=== PATIENT | male | born 1945 | race Hispanic/Latino ===

== ENCOUNTER 2018-04-04 22:47 | Inpatient (IN) | payer MEDICARE, OTHER ==
[2018-04-04] MEDS ORDERED: Fentanyl 100 MCG/2 ML VIAL ONE (23:02)
[2018-04-04] MEDS ORDERED: fentaNYL Citrate/PF 2,000 MCG in Sodium Chloride 0.9% 60 ML IV SCH (23:07)
[2018-04-04 23:16] LABS: Actual Bicarbonate (HCO3a) 20.6 mEq/L (22-28); Analyzer IN Cardio ER; Base Excess (BEa) -8.1 mEq/L (-2.0 to +3.0); Calcium, Ionized 1.13 mmol/L (1.12-1.30); Carboxyhemoglobin (COHb) 0.1 gm% (0.0-3.0); Hemoglobin (Hb) 12.5 g/dL (14.0-18.0); O2 Tension (PaO2) 170.3 mmHg (> 70.0); Potassium - ABG Lab 3.51 mmol/L (3.70-5.30)
[2018-04-04 23:17] LABS: #Eosinphils 0.7 thou/uL (0.0-0.7); #Lymphocytes 2.3 thou/uL (1.20-3.40); #Monocytes 0.5 thou/uL (0.11-0.59); #Neutrophils 4.3 thou/uL (1.40-6.50); %Basophils 0.5 % (0.0-1.0); %Eosinophils 9.3 % (0.0-10.0); %Lymphocytes 29.5 % (21.0-51.0); %Monocytes 6.1 % (0.0-10.0); %Neutrophils 54.6 % (42.0-75.0); Hemoglobin 12.2 g/dL (14.0-18.0); Mean Corpuscular HGB CONC 33.2 g/dL (32.0-36.0); Mean Corpuscular Volume 99.5 fL (78.0-98.0); Mean Platelet Volume 7.4 fL (7.4-10.4); Platelet Count 261 thou/uL (130-400); Red Blood Cell (RBC) Count 3.71 mill/uL (4.70-6.10); White Blood Cell (WBC) Count 7.9 thou/uL (4.8-10.8)
[2018-04-04 23:22] LABS: INR-International Normal Ratio 1.1; PTT 29.2 SEC (22.9-36.1); Prothrombin Time 14.1 SEC (12.0-14.7)
[2018-04-04 23:22] LABS: Puncture Site LRA; pH, Arterial 7.18 (7.35-7.45)
[2018-04-04 23:23] LABS: D-Dimer Test 2.4 *mcg/mL (0.27-0.43)
--- NOTE | 2018-04-04 23:37 | RAD ---
CHEST ONE VIEW: History: Shortness of breath. Pain. Comparison: None. FINDINGS: Limited evaluation due to overlying monitors and leads. Heart is enlarged. Pulmonary vessels appear t o be prominent. There are bilateral interstitial and alveolar infiltrates. Small left sided pleural e ffusion is suspected. No pneumothorax on this semi upright projection. Endotracheal tube appears to t erminate just beyond the level of the clavicles. IMPRESSION: Bilateral interstitial nodular infiltrates. POS: [facility]
[2018-04-04 23:41] LABS: ALT (SGPT) 28 U/L (8-55); AST (SGOT) 47 U/L (5-34); Albumin 3.4 g/dL (3.4-4.8); Alkaline Phosphatase 129 U/L (40-150); Anion Gap 17 mmol/L (10-20); BUN (Urea Nitrogen) 13 mg/dL (8.4-25.7); Bilirubin, Total 0.6 mg/dL (0.2-1.2); CK (CPK) 42 U/L (30-200); Calc. Creatinine Clearance 0 mL/min (70-130); Calcium 8.2 mg/dL (7.8-10.44); Carbon Dioxide 18 mmol/L (23-31); Chloride 100 mmol/L (98-107); Estimated GFR-MDRD 56; Globulin 2.9 g/dL (2.4-3.5); Glucose 221 mg/dL (83-110); Lipase 14 U/L (8-78); Magnesium 1.7 mg/dL (1.6-2.6); Potassium 4.2 mmol/L (3.5-5.1); Protein, Total 6.3 g/dL (5.8-8.1); Sodium 131 mmol/L (136-145)
[2018-04-04 23:43] LABS: CKMB 1.2 ng/mL (0-6.6); Troponin I 0.027 ng/mL (< 0.028)
[2018-04-05] MEDS ORDERED: Cefepime 2 GM VIAL ONE
[2018-04-05] MEDS ORDERED: Furosemide 40 MG/4 ML VIAL ONE (00:28)
[2018-04-05] MEDS ORDERED: Furosemide 20 MG/2 ML VIAL ONE (00:28)
[2018-04-05] MEDS ORDERED: Lorazepam 2 MG/ML VIAL SLOW IVP PRN (01:50)
[2018-04-05] MEDS ORDERED: Propofol BOLUS 1,000 MG/100 ML VIAL IV PRN (01:50)
[2018-04-05] MEDS ORDERED: Propofol 1,000 MG/100 ML VIAL IV PRN (01:50)
[2018-04-05] MEDS ORDERED: Fentanyl BOLUS 250 ML IVPB PRN (01:50)
[2018-04-05] MEDS ORDERED: Morphine 2 MG/ML SYRINGE SLOW IVP PRN (01:50)
[2018-04-05] MEDS ORDERED: Acetaminophen 325 MG TAB PO PRN (02:15)
[2018-04-05] MEDS ORDERED: Ondansetron PF 4 MG/2 ML Vial IVP PRN (02:15)
[2018-04-05] MEDS ORDERED: Ventilator Sedation Protocol 1 EACH FS ONE (02:18)
[2018-04-05 02:56] LABS: Actual Bicarbonate (HCO3a) 24.1 mEq/L (22-28); Base Excess (BEa) 0.4 mEq/L (-2.0 to +3.0); CO2 Tension 36.1 mmHg (35.0-45.0); Calcium, Ionized 1.09 mmol/L (1.12-1.30); Carboxyhemoglobin (COHb) 0.7 gm% (0.0-3.0); Hemoglobin (Hb) 12.9 g/dL (14.0-18.0); O2 Tension (PaO2) 345.1 mmHg (> 70.0); pH, Arterial 7.44 (7.35-7.45)
[2018-04-05 02:59] LABS: ALV-art Gradient 215.825 (0-20); Puncture Site RBRACH
[2018-04-05 03:19] LABS: #Eosinphils 0.3 thou/uL (0.0-0.7); #Lymphocytes 0.6 thou/uL (1.20-3.40); #Monocytes 0.4 thou/uL (0.11-0.59); #Neutrophils 8.5 thou/uL (1.40-6.50); %Basophils 0.4 % (0.0-1.0); %Eosinophils 3.6 % (0.0-10.0); %Lymphocytes 5.8 % (21.0-51.0); %Monocytes 3.7 % (0.0-10.0); %Neutrophils 86.6 % (42.0-75.0); Hemoglobin 12.1 g/dL (14.0-18.0); Mean Corpuscular HGB CONC 34.4 g/dL (32.0-36.0); Mean Corpuscular Hemoglobin 33.4 pg (27.0-31.0); Mean Platelet Volume 7.2 fL (7.4-10.4); Platelet Count 232 thou/uL (130-400); RBC Distribution Width 11.8 % (11.5-14.5); Red Blood Cell (RBC) Count 3.62 mill/uL (4.70-6.10); White Blood Cell (WBC) Count 9.8 thou/uL (4.8-10.8)
[2018-04-05 03:55] LABS: Anion Gap 13 mmol/L (10-20); BUN (Urea Nitrogen) 13 mg/dL (8.4-25.7); Calc. Creatinine Clearance 73 mL/min (70-130); Calcium 8.3 mg/dL (7.8-10.44); Carbon Dioxide 23 mmol/L (23-31); Chloride 100 mmol/L (98-107); Estimated GFR-MDRD 70; Glucose 167 mg/dL (83-110); Potassium 3.3 mmol/L (3.5-5.1); Sodium 133 mmol/L (136-145)
[2018-04-05 03:59] LABS: Troponin I 0.056 ng/mL (< 0.028)
[2018-04-05 04:39] LABS: Lactic Acid 1.4 mmol/L (0.5-2.2)
[2018-04-05 04:57] LABS: Troponin I 0.075 ng/mL (< 0.028)
[2018-04-05] MEDS ORDERED: Potassium Chloride 40 MEQ in Premix Bag 1 BAG IVPB SCH (05:45)
[2018-04-05 06:17] LABS: Bilirubin Negative (Negative); Blood, Urine Negative (Negative); Clarity CLEAR (Clear); Glucose, Urine (Dipstick) Negative (Negative); Leukocyte Negative (Negative); Nitrite Negative (Negative); Protein, Urine (Dipstick) Negative (Neg-Trace); Specific Gravity, Urine 1.009 (1.002-1.036)
--- NOTE | 2018-04-05 07:33 | RAD ---
CHEST 1 VIEW: Date: 04/04/18 HISTORY: Chest pain. COMPARISON: Radiograph prior day. FINDINGS: Patient is intubated with endotracheal tube tip poorly visualized due to overlying cardiac device. Th e central venous catheter tip sits at the inferior SVC. No pneumothorax. Layering effusions. Moderate edema. Cardiomegaly. IMPRESSION: 1. Endotracheal tube tip not well seen. 2. Enteric tube tip also not well seen. 3. Cardiomegaly with effusions and moderate edema. POS: [facility]
[2018-04-05] MEDS ORDERED: DC Sedation Protocol FS ONE (08:07)
--- NOTE | 2018-04-05 08:59 | CON ---
DATE OF CONSULTATION: 04/05/2018 CONSULTING PHYSICIAN: Joseist . Thirty-five minutes of critical care time. HISTORY OF PRESENT ILLNESS: This is a 72-year-old male who came in yesterday with increasing shortne ss of breath. He was intubated in the emergency room with presumptive diagnosis of pulmonary edema d ue to congestive heart failure. He was also started on antibiotics for assumed concurrent pneumonia. This morning, he was awake and alert. He was extubated without any difficulty. He tells me his sh ortness of breath started suddenly yesterday, although he had an episode before that. He had coronar y bypass grafting surgery a little over a month ago at [facility]. We do not have any records f rom that hospitalization. PAST MEDICAL HISTORY: 1. Coronary artery disease. 2. Hyperlipidemia. 3. Hypertension. 4. Chronic obstructive pulmonary disease. PAST SURGICAL HISTORY: 1. Coronary artery bypass grafting surgery. 2. Hernia repair. SOCIAL HISTORY: He stopped drinking in mid February after a history of drinking heavily in the past, quit smoking in February formally 1-1/2 packs per day. ALLERGIES: None. MEDICATIONS PRIOR TO ADMISSION: Aspirin 325 mg daily, lisinopril 2.5 mg daily, carvedilol 6.25 mg tw ice daily, atorvastatin 20 mg daily. PHYSICAL EXAMINATION: VITAL SIGNS: Temperature 97.7, pulse 65, blood pressure 123/66, O2 saturation 100%, intake since adm ission none, output 2760. HEENT: Pupils react. Sclerae icteric. Oropharynx clear. NECK: No adenopathy or JVD. LUNGS: Clear without wheezing or rhonchi. CARDIOVASCULAR: S1, S2 regular. ABDOMEN: Soft, nontender. EXTREMITIES: No edema. LABORATORY DATA: Sodium 133, potassium 3.3, chloride 100, CO2 23, BUN 13, creatinine 1.0, glucose 16 7. Troponin 0.07. Procalcitonin 0.06. White blood cell count 9.8, hematocrit 35.2, platelet count 232. INR 1.1. A CT pulmonary angiogram did not show any pulmonary emboli. A few scattered changes and some small p leural effusions bilaterally. ASSESSMENT: 1. Acute respiratory failure requiring mechanical ventilation - probably secondary to fluid overload . 2. Doubt concurrent pneumonia. RECOMMENDATIONS: 1. Extubation. 2. Continue diuresis. 3. Cardiology consultation. My assumption is EF is probably low given the fact that he is having to wear a LifeVest.
[2018-04-05] MEDS: Famotidine/PF 20 mg/2ml Vial SLOW IVP SCH ×3 (09:00→20:33)
[2018-04-05] MEDS: Enoxaparin Sodium 40 MG/0.4 ML SYRINGE SC SCH ×2 (09:00→11:43)
[2018-04-05] MEDS: Carvedilol 6.25 MG TAB PO SCH ×2 (09:00→20:33)
[2018-04-05] MEDS: Lisinopril 2.5 MG TAB PO SCH (09:00)
[2018-04-05] MEDS: Atorvastatin Calcium 20 MG TAB PO SCH (09:00)
[2018-04-05] MEDS: Aspirin 325 mg Enteric Coated Tablet PO SCH (09:00)
[2018-04-05] MEDS ORDERED: Prevnar 13-Val Conj/PF 0.5 ML SYRINGE IM ONE (09:00)
[2018-04-05] MEDS: Furosemide 40 MG/4 ML VIAL SLOW IVP SCH ×2 (09:00→11:44)
--- NOTE | 2018-04-05 09:08 | HP ---
PRIMARY CARE PHYSICIAN: Dr. Sharpe. FERMENTING CELLARS RECEIVER: Dr. Montemayor. VASCULAR SURGEON: Dr. Buck Leos. CODE STATUS: FULL CODE. TIME OF EVALUATION: 1:15 CHIEF COMPLAINT: Severe shortness of breath. HISTORY OF PRESENT ILLNESS: This is a 72-year-old male patient with past medical history of coronary artery disease, status post CABG 5 weeks ago, the patient had some improvement since surgery, was doing better at home; however, yesterday patient started having some weakness, not tolerating walking and went to bed and after being in bed around 10:00 p.m., the patient developed sudden severe shortness of breath, told his to call 911 due to the severity of the symptoms. No clear triggers, no alleviating factors. The patient was seen in the ER, the patient was on CPAP with some improvement; however, symptoms continued to get worse. The patient went into respiratory failure, was intubated. By the time of my examination, the patient is more stable on sedation protocol. The symptoms . REVIEW OF SYSTEMS: Unable to obtain due to patient is sedated and intubated. Family reported patient having severe shortness of breath. PAST MEDICAL HISTORY: Positive for coronary artery disease, status post CABG; acute DC in 02/2018; hyperlipidemia; hypertension; emphysema. PAST SURGICAL HISTORY: CABG x4, hernia repair. PSYCHIATRIC HISTORY: No previous psychiatric history. FAMILY HISTORY: Reviewed and non contributory to current presentation. SOCIAL HISTORY: The patient was a heavy drinker until DC in February. Former tobacco smoker until he got the DC in February. KNOWN ALLERGIES: No known drug allergies. REPORTED MEDICATIONS: Aspirin, lisinopril, carvedilol, atorvastatin. PHYSICAL EXAMINATION: VITAL SIGNS: On presentation, blood pressure 179/119, pulse 136, respiratory rate was 36, oxygen saturation 100 on CPAP, the patient ended up intubated due to respiratory failure. GENERAL APPEARANCE: The patient is sedated and intubated. HEENT: Eyes: Normal conjunctivae. Moist oral mucosa. Anicteric. NECK: No JVD. RESPIRATORY: Bilateral air entry, bilateral rales, no wheezing. Symmetric expansion. CARDIOVASCULAR: Normal rate, regular rhythm. No murmurs, no gallop, bilateral leg edema. ABDOMEN: Soft. Normal bowel sounds. MUSCULOSKELETAL: Baseline range of motion and strength. SKIN: Warm and intact. No pallor, no rash, no redness. Peripheral pulses are present. Capillary refill seems to be intact. NEUROLOGIC: No evidence of any new focal weakness. PSYCHIATRIC: The patient is sedated, intubated, unable to explore. IMAGING: EKG showed sinus tachycardia at the rate of 124, nonspecific intraventricular conduction delay. Chest x-ray showed pulmonary edema. LABORATORY DATA: Labs were reviewed. The patient has white count 9.8, hemoglobin 12.1, MCV 97, platelet count 232. ABG was done, the initial one was pH 7.18, pCO2 of 56 and pO2 of 117. The repeat one was showed pH 7.44 with pCO2 of 36 and pO2 of 345, that was on SIMV at the rate of 24, inspired oxygen 95%, tidal volume 500. Chemistry: Sodium 133, potassium 3.3, chloride 100, carbon dioxide 23, anion gap 13, BUN 13, creatinine 1.08, GFR 70, glucose 167, calcium 8.3. Troponin, the initial one was 0.027, second one was 0.057. Beta natriuretic peptide 2610. TSH was normal. ASSESSMENT AND PLAN: The patient will be placed in ICU for the following medical problem. Critical care time more than 40 minutes spent in bedside assessment, family meeting, reconciliation of critical care medication, review and elaboration of records. 1. Flash pulmonary edema, given history and findings on chest x-ray, the patient went into respiratory failure that was hypoxic and hypercapnic, needing intubation. After intubation, he has been stable. We will give Lasix. Consult Cardiology, we will follow recommendations. We will reconcile rest of home medications. 2. Acute hypercapnic hypoxic respiratory failure. Have seen on the ABG results , the patient need intubation, seems to be secondary to underlying flash pulmonary edema. We will treat underlying etiology. 3. History of coronary artery disease, status post coronary artery bypass grafting 5 weeks ago. The patient seems to have tolerated well the procedure. The surgeon was Dr. Buck Leos. If needed, can consult surgery, although does not look necessary at this point. 4. Non ST elevation myocardial infarction type 2. The patient has non- diagnostic EKG for acute myocardial infarction. First troponin was normal, second troponin 0.056, mildly elevated, could be secondary to non-STEMI type 2, we will treat underlying condition. 5. Acute congestive heart failure, very elevated proBNP in the range of 2610, we will diurese, respiratory support, reconcile home medications. Follow Cardiology evaluation. 6. Hyponatremia, sodium 133. This is mild, we will monitor, no need for any acute intervention at this point. 7. Hypokalemia, potassium 3.3. This is mild, we will replace electrolytes as needed. 8. Hyperglycemia. No reported history of diabetes. We will monitor, we will treat accordingly. 9. Deep venous thrombosis prophylaxis. MTDD
--- NOTE | 2018-04-05 09:58 | CT ---
PRELIMINARY REPORT/[facility]/EMERGENTY AFTER-HOURS PROCEDURE CT Angiography Chest With Intravenous Contrast EXAM DATE/TIME: 04/05/2018 12:42 AM CLINICAL HISTORY: 72 years old, male; Pain; Chest pain; Type not specified; Patient HX: M72 to ed with SOB. Pt's family called ems bc the PT was complaining of SOB due to a chest pressure sensation. PT had a quadruple by pass done x5 weeks ago. Ems reports vitals improved greatly once PT was placed on cpap. TECHNIQUE: Axial computed tomographic angiography images of the chest with intravenous contrast using CT angiogr aphy protocol. MIP reconstructed images were created and reviewed. COMPARISON: No relevant prior studies available. FINDINGS: ET tube, NG tube, and pacer device appear satisfactory. Pulmonary arteries: No pulmonary emboli. Aorta: There are atheromatous calcifications of the aorta without visible aneurysm. Lungs: There are emphysematous changes. Bilateral lower lobe consolidations consistent with atelectas is vs infiltrates. No masses. Pleural space: No pneumothorax. Small bilateral pleural effusions. Heart: Normal. Moderate cardiomegaly. No pericardial effusion. There are atheromatous calcifications of the coronary vasculature. Lymph nodes: Unremarkable. No enlarged lymph nodes. Bones/joints: Chronic degenerative spinal changes without acute fracture or dislocation. There are me suad sternotomy changes. Soft tissues: Unremarkable. Upper abdomen: 5.0 x 6.1 cm right renal cyst. IMPRESSION: No pulmonary emboli. Cardiomegaly and atheromatous disease. Bilateral lower lobe consolidations consistent with atelectasis vs infiltrates. Emphysema. Pleural effusions. Thank you for allowing us to participate in the care of your patient. Dictated and Authenticated by: Papi Talavera MD 04/05/2018 1:14 AM Central Time ([place] & [place]) FINAL REPORT CT ANGIOGRAM CHEST WITH CONTRAST: Date: 04/05/18 HISTORY: Shortness of breath. COMPARISON: None. FINDINGS: CT angiogram chest performed after the intravenous administration of contrast. 3D rendering is provid ed. Findings and impression are concordant with the preliminary report. Incidental note is made of mu ltiple right renal hypodensities, one in the superior pole, not measuring fluid attenuation. Follow-u p ultrasound in 3 months recommended. POS: [facility]
--- NOTE | 2018-04-05 10:00 | CT ---
PRELIMINARY REPORT/[facility]/EMERGENTY AFTER-HOURS PROCEDURE CT Head Without Intravenous Contrast EXAM DATE/TIME: 04/05/2018 12:39 AM CLINICAL HISTORY: 72 years old, male; Pain; Other: Chest pain/ loc; Patient HX: M72 to ed with SOB. Pt's family called ems bc the PT was complaining of SOB due to a chest pressure sensation. PT had a quadruple bypass don e x5 weeks ago. Ems reports vitals improved greatly once PT was placed on cpap. TECHNIQUE: Axial computed tomography images of the head/brain without intravenous contrast. COMPARISON: No relevant prior studies available. FINDINGS: Brain: There is no evidence for acute stroke or bleed. There is global and diffuse parenchymal volume loss. There are scattered foci of decreased attenuation in the periventricular and subcortical white matter , nonspecific, but most consistent with chronic small vessel ischemic changes in patient of this age. Ventricles / cisterns / extra-axial spaces: There is no hydrocephalus, midline shift, or acute extra-axial fluid collection. There is no sulcal e ffacement. Sinuses: No findings of acute sinusitis or suspicious sinus mass. Bone: No acute fracture or displacement. Impression: Chronic changes without evidence for acute, intracranial pathology. Thank you for allowing us to participate in the care of your patient. Dictated and Authenticated by: Papi Talavera MD 04/05/2018 12:58 AM Central Time ([place] & [place]) FINAL REPORT CT BRAIN WITHOUT CONTRAST: Date: 04/05/18 HISTORY: Altered mental status. COMPARISON: None. FINDINGS: There is extensive spray artifact from a radiopaque object outside the patient's right side. Findings and impression are concordant with the preliminary report. POS: [facility]
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
--- NOTE | 2018-04-05 14:26 | CON ---
DATE OF CONSULTATION: 04/05/2018 REASON FOR CONSULTATION: Acute systolic heart failure. HISTORY OF PRESENT ILLNESS: Mr. Aranda is a very pleasant 72-year-old patient of Dr. Ralph Montemayor at [facility]. He recently had a 4-vessel bypass in 02/2017. He recently presented with acute onset of shortness of breath. This is felt to be due to pulmonary edema. He did have dietary indiscretion per his and per patient. This occurred over . He became acutely short of breath. He is complaining of chest pain that occurred for less than half a second and is intermittent in lizzie ure. PAST MEDICAL HISTORY: CAD status post bypass surgery, hyperlipidemia, hypertension, COPD, hernia rep air and CABG. SOCIAL HISTORY: Previous alcohol use, quit all tobacco products in February. ALLERGIES: None. CURRENT MEDICATIONS: Include aspirin, lisinopril, carvedilol, and atorvastatin. REVIEW OF SYSTEMS: Ten-point review of systems is reviewed and as above, otherwise negative. PHYSICAL EXAMINATION: GENERAL: Patient is a pleasant male who is in no acute distress. The patient appears his stated age . VITAL SIGNS: Blood pressure 130/68, pulse 79, temperature afebrile. NEUROLOGIC: The patient is alert and oriented times 3 with no focal neurologic deficits. HEENT: Sclerae without icterus. Mouth has moist mucous membranes with normal pallor. NECK: No JVD. Carotid upstroke brisk. No bruits bilaterally. LUNGS: Crackles noted bilaterally at bases only. BACK: No scoliosis or kyphosis. CARDIAC: Regular rate and rhythm with normal S1 and S2. No S3 or S4 noted. No significant rubs, mur murs, thrills, or gallops noted throughout the precordium. PMI is not displaced. There is no parast ernal heave. ABDOMEN: Soft, nontender, nondistended. No peritoneal signs present. No hepatosplenomegaly. No abn ormal striae. EXTREMITIES: 2+ femoral and 2+ dorsalis pedis pulses. No cyanosis, clubbing, or edema. SKIN: No gross abnormalities. PERTINENT LABORATORY DATA: Hemoglobin 12.1. Sodium 133, potassium 3.3. Peak troponin 0.07. IMPRESSION: 1. Acute systolic heart failure. 2. Previous history of chronic systolic heart failure. 3. Coronary artery disease. 4. Status post bypass surgery. 5. Tobacco abuse. RECOMMENDATIONS: Mr. Aranda has been extubated this morning. He appears much better. He did not req uire nasal cannula. He has had significant diuresis with Lasix. We will continue to treat medically . He is currently on ARB in addition to aspirin, Coreg and statin therapy. I felt this is most like ly precipitated by dietary indiscretion over the holidays. We will need to consult with dietary.
--- NOTE | 2018-04-05 22:31 | CON ---
DATE OF CONSULTATION: 04/05/2018 HISTORY OF PRESENT ILLNESS: Mr. Aranda is a 72-year-old gentleman who underwent coronary artery bypas s grafting x4 after having a non-ST elevation myocardial infarction and presenting congestive heart f ailure with an ejection fraction of 20% at [facility] on 03/05/2018. Bypasses included a left i nternal mammary to LAD, saphenous vein graft to diagonal, OM, and distal right coronary. Postoperati vely, he has done well. He was seen in the office about a week and a half ago with his only complain t being of feeling like his head was in a bucket and his ears were stopped up. He apparently has had increasing fluid retention, shortness of breath and required transport to the emergency department l ast night. He was intubated in the emergency department, managed overnight, diuresed and has had exc ellent urine output since admission. He has been extubated and is resting comfortably in bed without complaint right now. He has no peripheral edema. He has a Mixon in place and has had excellent uri ne output over the course of the last 24 hours. I talked to his family since he has been here and they were surprised that he had any sort of dietary restrictions even though he had dietary consultation and he and I discussed this prior to his discha rge. We will have to have dietary meet with him again and try to reinforce congestive heart failure, salt restriction diet. EKG and troponins have been normal since his admission. PAST MEDICAL HISTORY: 1. Coronary artery disease. 2. Tobacco abuse. 3. Severely depressed left ventricular function. PAST SURGICAL HISTORY: 1. Hernia repair. 2. Coronary artery bypass grafting as above. MEDICATIONS AT HOME: Noted. ALLERGIES: None. SOCIAL HISTORY: He has stopped smoking since his bypass. PHYSICAL EXAMINATION: GENERAL: This is a well-developed, well-nourished man resting comfortably in bed. VITAL SIGNS: Heart rate is 94 and blood pressure is 143/82. LUNGS: Clear bilaterally. HEART: Rhythm is regular. ABDOMEN: Soft and nontender. EXTREMITIES: No edema. I's and O's over the last 24 hours, he has had approximately 3.5 liters to the negative. Current weig ht is 179 pounds. ASSESSMENT AND PLAN: A 72-year-old gentleman with congestive failure, status post coronary bypass gr afting. No further education of both the patient and his family is going to need to be undertaken in regards to his diet. I will discuss with his primary hand grinder, Dr. Montemayor, his admission and we c an make further plans as far as congestive failure followup after his discharge from the hospital.
[2018-04-06 04:45] LABS: #Eosinphils 0.4 thou/uL (0.0-0.7); #Lymphocytes 1.2 thou/uL (1.20-3.40); #Monocytes 0.7 thou/uL (0.11-0.59); #Neutrophils 5.8 thou/uL (1.40-6.50); %Basophils 0.6 % (0.0-1.0); %Eosinophils 5.1 % (0.0-10.0); %Lymphocytes 14.1 % (21.0-51.0); %Monocytes 8.9 % (0.0-10.0); %Neutrophils 71.4 % (42.0-75.0); Hemoglobin 11.5 g/dL (14.0-18.0); Mean Corpuscular HGB CONC 33.7 g/dL (32.0-36.0); Mean Corpuscular Hemoglobin 32.5 pg (27.0-31.0); Mean Corpuscular Volume 96.5 fL (78.0-98.0); Mean Platelet Volume 7.4 fL (7.4-10.4); Platelet Count 236 thou/uL (130-400); RBC Distribution Width 11.9 % (11.5-14.5); Red Blood Cell (RBC) Count 3.54 mill/uL (4.70-6.10); White Blood Cell (WBC) Count 8.1 thou/uL (4.8-10.8)
[2018-04-06 05:06] LABS: Anion Gap 11 mmol/L (10-20); BUN (Urea Nitrogen) 14 mg/dL (8.4-25.7); Calc. Creatinine Clearance 89 mL/min (70-130); Calcium 8.9 mg/dL (7.8-10.44); Carbon Dioxide 27 mmol/L (23-31); Chloride 100 mmol/L (98-107); Estimated GFR-MDRD 88; Glucose 96 mg/dL (83-110); Potassium 3.4 mmol/L (3.5-5.1); Sodium 135 mmol/L (136-145)
[2018-04-06 06:41] VITALS: BMI 25.0
--- NOTE | 2018-04-06 07:29 | PDOC.CTH ---
Cardiology Progress Note - Subjective Feels better. No complaints of SOB - Objective Vital Signs Temp BP Pulse Ox 04/06/18 04:00 98.8 F 04/06/18 00:00 98.5 F 04/05/18 20:33 115/72 04/05/18 20:00 98.7 F 98 Weight 184 lb 1.376 oz 04/05/18 04/06/18 04/07/18 06:59 06:59 06:59 Intake Total 376.8 Output Total 2760 2685 Balance -2760 -2308.2 - Physical Examination General/Neuro: alert & oriented x3, NAD Neck: carotid US brisk, no JVD present Lungs: CTA, unlabored respirations Heart: PMI normal, RRR Abdomen: NT/ND, soft Extremities: + femoral B - Labs Result Diagrams: 04/06/18 04:30 04/06/18 04:30 Troponin/CKMB CK-MB (CK-2) 1.2 ng/mL (0-6.6) 04/04/18 23:05 Troponin I 0.075 ng/mL (< 0.028) H 04/05/18 04:10 - Assessment/Plan Acute systolic SHF CAD S/p CABG ? thrombus noted on CT scan vs papillary muscle. Discussed case with Dr. Montemayor. Not noted on previous echo. Discussed ACT with pt. He states "if you put meds in front of me I will take them" Not sure he understands the importance of compliance. Recommend ACT (lovenox in hospital) and can provide samples of eliquis for 1 monhts. This will given him enough time to fu with Dr. Montemayor ( said would fu in one week) and make sure he has been compliant) Will ask surgeon to review echo at last month improved on lasix BB, ARB and statin and ASA
--- NOTE | 2018-04-06 08:05 | PRG ---
DATE OF SERVICE: 04/06/2018 The patient is doing well, he has no acute complaints. PHYSICAL EXAMINATION: VITAL SIGNS: Temperature is 97.9, pulse 91, blood pressure 110/62, O2 sat 95% on room air. HEENT: Unremarkable. NECK: No JVD. CHEST: Clear. CARDIAC: S1 and S2 regular. ABDOMEN: Soft. EXTREMITIES: No edema. LABORATORY DATA: Potassium is 3.4, hemoglobin 11.5, hematocrit 34.2, platelet count 236. ASSESSMENT: 1. Status post acute respiratory failure requiring endotracheal intubation and mechanical ventilatio n. 2. Pulmonary edema. PLAN: 1. He can be transferred out to the telemetry floor and hopefully should be able to go home soon. 2. I have written an order to replace potassium.
[2018-04-06] MEDS ORDERED: Potassium Chloride 20 MEQ TAB PO SCH (08:30)
[2018-04-06] MEDS: Furosemide 40 MG/4 ML VIAL SLOW IVP SCH (09:40)
[2018-04-06] MEDS: Atorvastatin Calcium 20 MG TAB PO SCH (09:40)
[2018-04-06] MEDS: Famotidine/PF 20 mg/2ml Vial SLOW IVP SCH (09:41)
[2018-04-06] MEDS: Lisinopril 2.5 MG TAB PO SCH (09:41)
[2018-04-06] MEDS: Enoxaparin Sodium 40 MG/0.4 ML SYRINGE SC SCH (09:41)
[2018-04-06] MEDS: Aspirin 325 mg Enteric Coated Tablet PO SCH (09:41)
[2018-04-06] MEDS: Carvedilol 6.25 MG TAB PO SCH ×2 (09:42→20:35)
--- NOTE | 2018-04-06 14:40 | PDOC.PN ---
- Subjective Encounter Start Date: 04/06/18 Encounter Start Time: 09:45 follow up for acute hypercapneic resp failure, SOB, flash pulm edema. extubated 04/05 No F/C, no N/V/d/C, no CP, no SOB, no cough or sputum All systems reviewed and neg x as above - Objective 04/06/18 12:13 Resuscitation Status Routine Resuscitation Status: FULL: Full Resuscitation Discussed with: per previous order MAR Reviewed: Yes Vital Signs & Weight: Vital Signs (12 hours) Temp Pulse BP Pulse Ox 04/06/18 13:00 98.0 F 04/06/18 09:42 133/74 04/06/18 09:41 81 133/74 04/06/18 08:00 100 04/06/18 07:00 97.9 F 04/06/18 04:00 98.8 F Weight Weight 184 lb 1.376 oz Most Recent Monitor Data Heart Rate from ECG 73 NIBP 108/61 NIBP BP-Mean 76 Respiration from ECG 16 SpO2 100 I&O: 04/05/18 04/06/18 04/07/18 06:59 06:59 06:59 Intake Total 376.8 540 Output Total 2760 2685 670 Balance -2760 -2308.2 -130 Result Diagrams: 04/06/18 04:30 04/06/18 04:30 Phys Exam - Physical Examination Constitutional: NAD HEENT: PERRLA, moist MMs, sclera anicteric, oral pharynx no lesions Neck: no nodes, no JVD, supple, full ROM Respiratory: no wheezing, no rales, no rhonchi, clear to auscultation bilateral Cardiovascular: RRR, no significant murmur, no rub Gastrointestinal: soft, non-tender, no distention, positive bowel sounds Musculoskeletal: no edema Neurological: non-focal, normal sensation, moves all 4 limbs Lymphatic: no nodes Psychiatric: normal affect, A&O x 3 Skin: no rash, normal turgor, cap refill <2 seconds Dx/Plan (1) Acute hypercapnic respiratory failure Code(s): J96.02 - ACUTE RESPIRATORY FAILURE WITH HYPERCAPNIA Status: Resolved Comment: extubated, ABG normal 04/05 (2) Flash pulmonary edema Code(s): J81.0 - ACUTE PULMONARY EDEMA Status: Resolved (3) Acute on chronic systolic and diastolic heart failure, NYHA class 4 Code(s): I50.43 - ACUTE ON CHRONIC COMBINED SYSTOLIC AND DIASTOLIC HRT FAIL Status: Acute (4) CAD (coronary artery disease) Code(s): I25.10 - ATHSCL HEART DISEASE OF [place] CORONARY ARTERY W/O ANG PCTRS Status: Chronic Qualifiers: Coronary Disease-Associated Artery/Lesion type: [place] artery [place] vs. transplanted heart: [place] heart Associated angina: without angina Qualified Code(s): I25.10 - Atherosclerotic heart disease of [place] coronary artery without angina pectoris (5) History of coronary artery bypass surgery Status: Acute Comment: one month ago by Dr Buck Leos - Plan cont current plan of care, plan discussed w/ family, PT/OT, out of bed/ambulate * .
--- NOTE | 2018-04-06 17:30 | PQF ---
CLINICAL DOCUMENTATION IMPROVEMENT CLARIFICATION FORM: ICD-10 Updated PLEASE DO AN ADDENDUM TO THE PROGRESS NOTE WITH ANY DOCUMENTATION UPDATES OR ADDITIONS AND CARRY THROUGH TO DC SUMMARY. THANK YOU. DATE: 04/06/18 ATTN: Dr. Hutchison Please exercise your independent, professional judgment in responding to the clarification form. Clinical indicators are provided on the bottom of this form for your review Please check appropriate box(s): AMI TYPE: [ ] AMI Type II [ ] NSTEMI [ x ] Demand Ischemia [ ] Other diagnosis [ ] Unable to determine CLINICAL INDICATORS - SIGNS / SYMPTOMS / LABS H&P 04/05: Non ST elevation myocardial infarction type 2. The pt has non- diagnostic EKG for acute myocardial infarction. First troponin was normal, second troponin 0.056, mildly elevated, could be secondary to non-STEMI type 2, we will treat underlying condition. LABS: TROPONIN I 0.027 0.056 0.075 Cardiology Consult 04/05: Peak troponin 0.07 Acute systolic heart failure. RISKS: H&P: Flash pulmonary edema. pt went into respiratory failure needing intubation. Hx CAD, s/p CABG 5 weeks ago. Acute [place] in 02/2018 TREATMENT: ER: Intubated Order 04/05: IV LASIX 40 MG DAILY Thank you, Kecia (This form is maintained as a part of the permanent medical record) 2014 [employer] All Rights Reserved Kecia Zaidi RN, BSN [email or web address] Office: [phone] [facility] SYSTEMAliyah
[2018-04-06] MEDS: Famotidine 20 MG TAB PO SCH (20:34)
[2018-04-06] MEDS: Enoxaparin Sodium 80 MG/0.8 ML SYRINGE SC SCH (20:34)
[2018-04-07] MEDS: Atorvastatin Calcium 20 MG TAB PO SCH (10:43)
[2018-04-07] MEDS: Aspirin 325 mg Enteric Coated Tablet PO SCH (10:43)
[2018-04-07] MEDS: Carvedilol 6.25 MG TAB PO SCH (10:43)
[2018-04-07] MEDS: Famotidine 20 MG TAB PO SCH (10:43)
[2018-04-07] MEDS: Lisinopril 2.5 MG TAB PO SCH (10:44)
[2018-04-07] MEDS: Furosemide 40 MG/4 ML VIAL SLOW IVP SCH (10:44)
[2018-04-07] MEDS: Enoxaparin Sodium 80 MG/0.8 ML SYRINGE SC SCH (10:52)
--- NOTE | 2018-04-07 13:23 | PDOC.CTH ---
Cardiology Progress Note - Subjective Doing better today. No complaints - Objective Vital Signs Temp Pulse BP Pulse Ox 04/07/18 12:00 98.7 F 04/07/18 10:44 74 117/70 04/07/18 10:43 117/70 04/07/18 08:00 98.1 F 100 04/07/18 03:00 97.8 F Weight 184 lb 1.376 oz 04/06/18 04/07/18 04/08/18 06:59 06:59 06:59 Intake Total 376.8 680 840 Output Total 2685 1199 325 Balance -2308.2 -519 515 - Physical Examination General/Neuro: alert & oriented x3, NAD Neck: carotid US brisk, no JVD present Lungs: CTA, unlabored respirations Heart: PMI normal, RRR Abdomen: NT/ND, soft Extremities: + femoral B - Labs Result Diagrams: 04/06/18 04:30 04/06/18 04:30 Troponin/CKMB CK-MB (CK-2) 1.2 ng/mL (0-6.6) 04/04/18 23:05 Troponin I 0.075 ng/mL (< 0.028) H 04/05/18 04:10 - Assessment/Plan CAD s/p CABG Acute systolic HF Apical thrombus After discussing with Dr. He, It appears the area noted at the apex is new. Discussed the R/B with pt of ACT. He agrees to proceed. Recommend repeat echo at . Dr He to see pt in 1-2 weeks. Po lasix Coreg and ACEI. Ok for DC from my standpoint
--- NOTE | 2018-04-07 14:08 | PDOC.PN ---
- Subjective Encounter Start Date: 04/07/18 Encounter Start Time: 14:00 follow up for acute hypercapneic resp failure, SOB, flash pulm edema. extubated 04/05 No F/C, no N/V/d/C, no CP, no SOB, no cough or sputum All systems reviewed and neg x as above - Objective Resuscitation Status - Order Detail: 04/06/18 12:13 Resuscitation Status Routine Resuscitation Status: FULL: Full Resuscitation Discussed with: per previous order MAR Reviewed: Yes Vital Signs & Weight: Vital Signs (12 hours) Temp Pulse BP Pulse Ox 04/07/18 12:00 98.7 F 04/07/18 10:44 74 117/70 04/07/18 10:43 117/70 04/07/18 08:00 98.1 F 100 04/07/18 03:00 97.8 F Weight Weight 184 lb 1.376 oz Most Recent Monitor Data Heart Rate from ECG 79 NIBP 115/88 NIBP BP-Mean 97 Respiration from ECG 21 SpO2 100 I&O: 04/06/18 04/07/18 04/08/18 06:59 06:59 06:59 Intake Total 376.8 680 940 Output Total 2685 1199 325 Balance -2308.2 -519 615 Result Diagrams: 04/06/18 04:30 04/06/18 04:30 Phys Exam - Physical Examination Constitutional: NAD HEENT: PERRLA, moist MMs, sclera anicteric, oral pharynx no lesions Neck: no nodes, no JVD Respiratory: no wheezing, no rales, no rhonchi, clear to auscultation bilateral Cardiovascular: RRR, no significant murmur, no rub Gastrointestinal: soft, non-tender, no distention, positive bowel sounds Musculoskeletal: no edema Neurological: non-focal, normal sensation, moves all 4 limbs Lymphatic: no nodes Psychiatric: normal affect, A&O x 3 Skin: no rash, normal turgor, cap refill <2 seconds Dx/Plan (1) Acute hypercapnic respiratory failure Code(s): J96.02 - ACUTE RESPIRATORY FAILURE WITH HYPERCAPNIA Status: Resolved Comment: extubated, ABG normal 04/05 (2) Flash pulmonary edema Code(s): J81.0 - ACUTE PULMONARY EDEMA Status: Resolved (3) Acute on chronic systolic and diastolic heart failure, NYHA class 4 Code(s): I50.43 - ACUTE ON CHRONIC COMBINED SYSTOLIC AND DIASTOLIC HRT FAIL Status: Acute (4) CAD (coronary artery disease) Code(s): I25.10 - ATHSCL HEART DISEASE OF [place] CORONARY ARTERY W/O ANG PCTRS Status: Chronic Qualifiers: Coronary Disease-Associated Artery/Lesion type: [place] artery [place] vs. transplanted heart: [place] heart Associated angina: without angina Qualified Code(s): I25.10 - Atherosclerotic heart disease of [place] coronary artery without angina pectoris (5) History of coronary artery bypass surgery Status: Acute Comment: one month ago by Dr Buck Leos - [place] * .
--- NOTE | 2018-04-07 15:17 | PRG ---
DATE OF SERVICE: 03/30/2018 SUBJECTIVE: He is doing well. Has no acute complaints aside from the Mixon catheter that remains in place. OBJECTIVE: VITAL SIGNS: On exam, his temperature is 97.8, pulse 93, and blood pressure 127/78. Total intake 680, output 1199. HEENT: Unremarkable. NECK: No JVD. LUNGS: Clear. CARDIAC: S1 and S2, regular. ABDOMEN: Soft. EXTREMITIES: No edema. LABORATORY DATA: No labs were done today. ASSESSMENT: 1. Status post respiratory failure, requiring mechanical ventilation. 2. Resolved pulmonary edema. 3. Recent coronary artery bypass grafting surgery. PLAN: The assumption is he could probably go home today. I will have his Mixon removed. No further Pulmonary recommendations. Job ID: [id number]
[2018-04-07 16:47] VITALS: BP 115/88; TEMP 98.1
--- NOTE | 2018-04-07 16:54 | DIS ---
DATE OF ADMISSION: 04/05/2018 DATE OF DISCHARGE: 04/07/2018 PRIMARY HAND STAMPER: Dr. Montemayor. DISCHARGE DIAGNOSES: 1. Acute on chronic systolic congestive heart failure. 2. Acute hypercapnic respiratory failure, requiring intubation. 3. Flash pulmonary edema, present on admission, resolved. 4. Hypertension. 5. 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 6. Gastroesophageal reflux disease. 7. Coronary artery disease with history of coronary artery bypass surgery. CONSULTATIONS: 1. Pulmonary Critical Care, Dr. Ryder Cr. 2. Cardiothoracic Surgery, Dr. Buck Leos on 04/05/2018. 3. Cardiology, Dr. Cristian Patel on 04/05/2018. PROCEDURES PERFORMED: 1. Echocardiogram on 04/05/2018 showed EF of 20% to 25%, dilated LV, possible apical thrombus. 2. Restrictive filling pattern suggesting restrictive diastolic dysfunction. 3. Moderately severely dilated LA and moderate to severe mitral regurgitation with moderate TR. HISTORY AND PHYSICAL: Mr. Aranda is a 72-year-old gentleman, who was in the emergency department for evaluation late on 04/04/2018, complaining of shortness of breath. He is 5 weeks status post coronary artery bypass grafting, has been improved after surgery but developed acute onset of worsening shortness of breath. He came to emergency department after calling 911. He was placed on CPAP with some improvement, but symptoms continued to get worse. ABG showed hypercapnic respiratory failure. The patient was subsequently intubated. We were called for admission. HOSPITAL COURSE: The patient was examined by Dr. Clifford, admitted to the ICU on the ventilator. Pulmonary Critical Care, Cardiology, and Cardiothoracic Surgery were consulted. The patient was diuresed aggressively and by the following morning, 04/05/2018, he was doing much better, and was extubated. He did well post extubation. Echocardiogram was done with the above results. He continued to improve from 04/05/2018 to 04/07/2018, and today he was stable for discharge with outpatient followup. Due to the fact that he had apical thrombus, Dr. Patel is recommending the patient to be placed on Xarelto. PHYSICAL EXAMINATION: The patient was seen and examined on the day of discharge. Discharge plan and disposition were discussed with the patient face to face at the bedside. DISCHARGE MEDICATIONS: New medications; 1. Xarelto 20 mg p.o. b.i.d. for 21 days and 15 mg p.o. daily thereafter. 2. Atorvastatin 20 mg p.o. at bedtime. 3. Aspirin 325 mg daily. 4. Carvedilol 6.25 mg p.o. b.i.d. 5. Lisinopril 2.5 mg p.o. daily. New prescription sent. DISCHARGE CONDITION: Stable. DISPOSITION: Discharged home via private vehicle with home health care. DISCHARGE ACTIVITY: Per cardiopulmonary limits. DISCHARGE DIET: Heart healthy diet is recommended. FOLLOWUP APPOINTMENTS: 1. Primary care physician within a week. 2. Cardiology within 1 to 2 weeks. Job ID: [id number]
[2018-04-07] MEDS ORDERED: Rivaroxaban 10 MG TAB PO SCH (18:00)
== END 2018-04-07 18:15 | disposition home or self-care (01) | DRG 208 ==
LOC: ERS 22:47 → CCU 04-05 00:52
PROVIDERS: ADMIT Hospitalist; ATTEND Hospitalist
PROC: 0BH17EZ Insertion of Endotracheal Airway into Trachea, Via Natural or Artificial Opening (ICD-10-PCS; principal; 2018-04-05)
PROC: 5A1945Z Respiratory Ventilation, 24-96 Consecutive Hours (ICD-10-PCS; 2018-04-05)
DX: J96.02 Acute respiratory failure with hypercapnia (principal); I50.43 Acute on chronic combined systolic (congestive) and diastolic (congestive) heart failure; I24.8 Other forms of acute ischemic heart disease; I25.10 Atherosclerotic heart disease of native coronary artery without angina pectoris; I11.0 Hypertensive heart disease with heart failure; K21.9 Gastro-esophageal reflux disease without esophagitis; Z95.1 Presence of aortocoronary bypass graft
CPT/HCPCS: 31500; 36415; 36556; 51702; 70450; 71045; 71275; 80048; 80053; 81003; 82550; 82553; 82805; 83605; 83690; 83735; 83880; 84145; 84443; 84484; 85025; 85379; 85610; 85730; 86850; 86900; 86901; 87040; 87086; 90471; 90670; 93005; 93306; 93798; 94002; 94760; 96361; 96365; 96366; 96375; 99292; G0009; J0692; J1650; J1940; J2704; J3010; J3370; J3480; J7050; S0028